=== PATIENT | male | born 1995 | race Caucasian/White ===

== ENCOUNTER 2023-12-03 01:13 | Emergency (ER) | payer MEDICAID ==
[~2023-12-03] VITALS: Ht 182.9 cm; Wt 72.7 kg
[2023-12-03] MEDS: cephalexin 250mg capsule PO ONE (02:49)
[2023-12-03] MEDS: naproxen 500mg tablet PO ONE (02:49)
[2023-12-03] MEDS: HYDROcodone/acetaminophen 10/325mg tab PO ONE (02:50)
[2023-12-03] MEDS: LIDOcaine 1% W/epiNEPHrine 1:100,000 20ml vial IJ ONE (02:51)
[2023-12-03 03:53] LABS: URINE AMPHETAMINE SCREEN NEGATIVE (Neg); URINE BARBITUATE SCREEN NEGATIVE (Neg); URINE BENZODIAZEPINES SCREEN NEGATIVE (Neg); URINE CANNABINOID SCREEN POSITIVE (Neg); URINE COCAINE SCREEN NEGATIVE (Neg); URINE METHADONE SCREEN NEGATIVE (Neg); URINE OPIATE SCREEN NEGATIVE (Neg); URINE PHENCYCLIDINE SCREEN NEGATIVE (Neg)
[2023-12-03 03:58] LABS: BILIRUBIN,URINE SMALL (Neg); CLARITY,URINE CLEAR (Clear); COLOR,URINE AMBER (Yellow); GLUCOSE, URINE NEGATIVE (Neg); KETONES,URINE NEGATIVE (Neg); LEUKOCYTE ESTERASE ,URINE NEGATIVE (Neg); NITRITES, URINE NEGATIVE (Neg); OCCULT BLOOD,URINE NEGATIVE (Neg); PH,URINE 5.5 (4.8-8.0); PROTEIN,URINE TRACE mg/dl (Neg); UROBILINOGEN,URINE 0.2 E.U/dL (0.2-1.0)
[2023-12-03 04:10] LABS: UA COLLECTION TYPE CLN CATCH MIDSTREAM
[2023-12-03 04:19] LABS: BACTERIA,URINE FEW /HPF (Neg); MUCUS STRANDS MODERATE /LPF (Neg); SQUAMOUS EPITHELIAL CELL,UR FEW /LPF (FEW)
[2023-12-03 04:20] LABS: RBC,URINE 0-2 /HPF (0-2); WBC,URINE 0-4 /HPF (0-4)
[2023-12-03] MEDS ORDERED: CEPH-585 PO (04:40)
[2023-12-03 04:46] VITALS: BP 105/69; PULSE 52; RESP 18; TEMP 97.9; O2SAT 98
== END 2023-12-03 04:47 | disposition home or self-care (01) ==
LOC: ER 01:14
DX: L72.3 Sebaceous cyst (principal); F17.200 Nicotine dependence, unspecified, uncomplicated; F12.90 Cannabis use, unspecified, uncomplicated; Z88.1 Allergy status to other antibiotic agents
CPT/HCPCS: 10060; 80305; 81001; 99284; A6266; J3490